=== PATIENT | female | born 1960 | race Caucasian/White ===

== ENCOUNTER → 2018-05-03 08:00 | Outpatient (CLI) | payer OTHER ==
[~2018-05-03 08:00] MED LIST: CIPRO500 MG PO; DIOVAN160 M1; GABAPENTIN800 MG PO; LIPITOR PO; LIPITOR20 MG PO; LOSARTAN POTASS50 MG PO; LYRICA200 MG PO; MOTRIN800 MG PO; NORFLEX PO; NORFLEX100 MG; PNEU16DI2 IJ; PYRIDIUM200 MG PO; SEROQUEL50 MG PO; TORADOL10 MG; TRAMADOL HCL50 MG PO; VISTARIL50 MG PO; [UNRECOGNIZED DRUG - OTHER] PO
== END | disposition home or self-care (01) ==
LOC: EKG 08:00 → ADM 11:00 → CIR.AMB 05-08 08:00 → AMB-ENDOS 05-08 08:00 → EDSTATUS 05-08 11:00 → CIR.AMB 05-08 11:00
DX: H65.92 Unspecified nonsuppurative otitis media, left ear (principal); I10 Essential (primary) hypertension; I48.91 Unspecified atrial fibrillation; Z01.810 Encounter for preprocedural cardiovascular examination

== ENCOUNTER → 2018-05-26 10:47 | Outpatient (CLI) | payer OTHER | END | disposition home or self-care (01) | LOC: LAB 10:47 | DX: B36.9 Superficial mycosis, unspecified (principal) ==

== ENCOUNTER 2019-04-23 06:05 | Day surgery (SDC) | payer OTHER ==
[~2019-04-23 06:05] MED LIST changes: +DOCEPIN PO; +RISPERDAL0.5 MG PO; +ZOLOFT100 MG PO
== END 2019-04-23 10:10 | disposition home or self-care (01) ==
LOC: CIR.AMB 06:05
DX: H83.2X3 Labyrinthine dysfunction, bilateral (principal); H74.11 Adhesive right middle ear disease